=== PATIENT | female | born 1930 | race Caucasian/White ===

== ENCOUNTER 2017-02-01 04:46 | Inpatient (IN) | payer MEDICARE, OTHER ==
[~2017-02-01 04:46] MED LIST: CALCIUM CARBON500 M2 PO; ELIQUIS2.5 M1 PO; MULTIVITAMINS1 EAC7 PO; SYNTHROID75 MC1 PO; TOPROL XL25 M1 PO; VITAMIN D35000 UNI3 PO; ZOCOR20 M1 PO
[2017-02-01 05:14] LABS: BASO % 0.5 % (0-2); EOS % 2.3 % (0-7); EOSINOPHIL ABSOLUTE COUNT 0.2 tho/cmm (0.0-0.7); HGB-HEMOGLOBIN 14.2 gm/dl (12.0-15.5); IMMATURE GRANULOCYTES ABSOLUTE 0.02 tho/cmm (0-0.03); IMMATURE GRANULOCYTES PERCENT 0.2 % (0-0.3); LYMPH % 26.3 % (20-45); LYMPH ABSOLUTE COUNT 2.2 tho/cmm (0.8-4.5); MCH (MEAN CORPUSCULAR HGB) 32.2 pg (28.0-32.0); MCHC MEAN CORPUSCULAR HGB CONC 33.8 % (32.0-36.0); MCV (MEAN CELL VOLUME) 95.2 fl (82.0-96.0); MEAN PLATELET VOLUME 9.6 cmc (9.4-12.4); MONO % 8.5 % (0-12); MONOCYTE ABSOLUTE COUNT 0.7 tho/cmm (0.0-1.2); NEUTROPHIL ABSOLUTE COUNT 5.2 tho/cmm (1.6-8.0); NEUTROPHIL-AUTOMATED 5.2 tho/cmm (1.6-8.0); NEUTROPHILS % 62.2 % (40-80); PLATELET COUNT 328 tho/cmm (150-450); RED BLOOD COUNT 4.41 mil/cmm (4.00-5.20); RED CELL DISTRIBUTION WIDTH 12.1 % (12.4-16.4); WHITE BLOOD COUNT 8.4 tho/cmm (4.0-10.0)
[2017-02-01 05:30] LABS: PROTHROMBIN TIME 11.1 SECONDS (9.0-13.6)
[2017-02-01] MEDS ORDERED: CALCIUM CARBON600 M2 PO (05:32)
[2017-02-01 05:43] LABS: ALB/GLOB RATIO 1.2 (0.8-2.0); ALBUMIN 3.4 g/dl (3.5-5.0); ALKALINE PHOSPHATASE 59 U/L (33-138); ALT/SGPT 18 U/L (12-78); ANION GAP 13 mmol/L (0-20); AST/SGOT 15 U/L (10-40); BILIRUBIN,TOTAL 0.2 mg/dl (0-1.5); BLOOD UREA NITROGEN 13 mg/dl (6-24); CALCIUM 8.8 mg/dl (8.5-10.5); CARBON DIOXIDE-VENOUS 28 mmol/L (22-32); CHLORIDE 105 mmol/l (96-110); CREATININE 0.97 mg/dl (0.50-1.10); GLUCOSE 127 mg/dL (70-110); POTASSIUM 3.5 mmol/L (3.7-5.1); SODIUM 142 mmol/L (135-145); eGFR VALUE FOR BLACK 61 mL/Min
[2017-02-01 07:42] LABS: PROCALCITONIN <0.05 ng/ml (0.05-0.09)
[2017-02-01 11:56] LABS: CHOLESTEROL 146 mg/dl (120-200); CKMB 3.8 ng/ml (<3.6); HDL CHOLESTEROL 66 mg/dl (40-60); LDL CHOLESTEROL 62 mg/dl (0-99); TRIGLYCERIDES 93 mg/dl (<149); VLDL 19 mg/dl (0-30)
[2017-02-01 15:42] LABS: CKMB 3.5 ng/ml (<3.6)
[2017-02-01 17:04] LABS: URINE BILIRUBIN NEGATIVE (NEG); URINE BLOOD NEGATIVE (NEG); URINE GLUCOSE (UA) NEGATIVE (NEG); URINE KETONE NEGATIVE (NEG); URINE LEUKOCYTE ESTERASE NEGATIVE (NEG); URINE NITRITE NEGATIVE (NEG); URINE PROTEIN NEGATIVE (NEG)
[2017-02-01 17:05] LABS: URINE APPEARANCE CLEAR; URINE COLOR YELLOW
[2017-02-01 18:02] LABS: CKMB 3.5 ng/ml (<3.6)
[2017-02-02 04:40] LABS: BASO % 0.2 % (0-2); EOS % 2.3 % (0-7); EOSINOPHIL ABSOLUTE COUNT 0.2 tho/cmm (0.0-0.7); HCT-HEMATOCRIT 37.9 % (34.0-49.0); HGB-HEMOGLOBIN 12.8 gm/dl (12.0-15.5); IMMATURE GRANULOCYTES ABSOLUTE 0.03 tho/cmm (0-0.03); IMMATURE GRANULOCYTES PERCENT 0.4 % (0-0.3); LYMPH % 21.3 % (20-45); LYMPH ABSOLUTE COUNT 1.8 tho/cmm (0.8-4.5); MCHC MEAN CORPUSCULAR HGB CONC 33.8 % (32.0-36.0); MCV (MEAN CELL VOLUME) 94.8 fl (82.0-96.0); MEAN PLATELET VOLUME 9.6 cmc (9.4-12.4); MONOCYTE ABSOLUTE COUNT 0.8 tho/cmm (0.0-1.2); NEUTROPHIL ABSOLUTE COUNT 5.7 tho/cmm (1.6-8.0); NEUTROPHIL-AUTOMATED 5.7 tho/cmm (1.6-8.0); NEUTROPHILS % 66.8 % (40-80); PLATELET COUNT 300 tho/cmm (150-450); WHITE BLOOD COUNT 8.6 tho/cmm (4.0-10.0)
[2017-02-02 05:09] LABS: ALB/GLOB RATIO 1.1 (0.8-2.0); ALBUMIN 2.9 g/dl (3.5-5.0); ALKALINE PHOSPHATASE 50 U/L (33-138); ALT/SGPT 16 U/L (12-78); ANION GAP 11 mmol/L (0-20); AST/SGOT 15 U/L (10-40); BLOOD UREA NITROGEN 11 mg/dl (6-24); CARBON DIOXIDE-VENOUS 28 mmol/L (22-32); CHLORIDE 110 mmol/l (96-110); CREATININE 0.94 mg/dl (0.50-1.10); GLUCOSE 100 mg/dL (70-110); POTASSIUM 3.9 mmol/L (3.7-5.1); SODIUM 145 mmol/L (135-145); eGFR VALUE FOR BLACK 63 mL/Min
[2017-02-02 05:19] LABS: BILIRUBIN,TOTAL 0.5 mg/dl (0-1.5)
[2017-02-02] MEDS ORDERED: NITROSTAT0.4 MG/TAB SL (10:21)
[2017-02-02] MEDS ORDERED: ASPIRIN81 M1 PO (10:27)
[2017-02-02] MEDS ORDERED: NORVASC5 M2 PO (10:27)
== END 2017-02-02 11:40 | DRG 308 ==
LOC: EDMED 04:46 → EMR2 07:57 → PCUA 08:35
PROVIDERS: Emergency Medicine; Internal Medicine; ADMIT Hospitalist
DX: I48.91 Unspecified atrial fibrillation (principal); J18.9 Pneumonia, unspecified organism; I35.1 Nonrheumatic aortic (valve) insufficiency; I10 Essential (primary) hypertension; E03.9 Hypothyroidism, unspecified; E78.5 Hyperlipidemia, unspecified; Z79.01 Long term (current) use of anticoagulants
CPT/HCPCS: J1956; J2543; J3370; J7030